=== PATIENT | female | born 1975 | race Caucasian/White ===

== ENCOUNTER 2023-05-14 05:14 | Emergency (ER) | payer OTHER ==
[~2023-05-14] VITALS: Ht 170.2 cm; Wt 113.4 kg
[2023-05-14] MEDS ORDERED: Ketorolac Tromethamine 30mg Vial IM ONE (06:45)
[2023-05-14] MEDS ORDERED: Methocarbamol 500 MG Tab PO ONE (06:45)
[2023-05-14] MEDS ORDERED: Acetaminophen 500 MG Tab PO ONE (06:45)
[2023-05-14] MEDS ORDERED: Robaxin750 MG PO (07:07)
[2023-05-14] MEDS ORDERED: NAPROXEN250 M1 PO (07:07)
[2023-05-14 07:12] VITALS: BP 113/74
== END 2023-05-14 07:13 | disposition home or self-care (01) ==
LOC: ER 05:14
DX: M54.50 Low back pain, unspecified (principal); Z88.0 Allergy status to penicillin; X50.0XXA Overexertion from strenuous movement or load, initial encounter; Y93.89 Activity, other specified; Y99.0 Civilian activity done for income or pay
CPT/HCPCS: 96372; 99283-25; A9270; J1885